=== PATIENT | male | born 1970 | race Caucasian/White ===

== ENCOUNTER 2018-05-31 16:19 | Emergency (ER) | payer BC ==
[2018-05-31] MEDS ORDERED: AMPICILLIN SODIUM/SULBACTAM NA 3 G in 0.9 % SODIUM CHLORIDE 100ML 100 ML IVPB ONE (16:31)
--- NOTE | 2018-05-31 16:31 | Emergency Department Record ---
History of Present Illness - General Chief Complaint: Animal Bite Stated Complaint: DOG BITES BOTH HANDS Time Seen by Provider: 05/31/18 16:26 Source: Patient Mode of Arrival: Ambulatory Limitations: No limitations - History of Present Illness Initial Comments: 47 yo male presents with dog bites. He was breaking up a fight with his dogs. He was bit on both hands. He is right handed. His tetanus is current. The dogs are up to date and healthy. MD Complaint: Animal bite -: Minutes(s) Left: Hand, Right: Hand Animal: Dog Description: Household pet, Immunizations UTD, Appeared well Mechanism: Bite Pain Description: Sharp Context: Animals fighting Associated Symptoms: Other - Related Data Home Medications Medication Instructions Recorded Confirmed Last Taken Emtricitabine/Tenofovir (Tdf) 1 tab PO ASDIR 05/31/18 05/31/18 05/31/18 [Truvada 200 mg-300 mg Tablet] Neomycin/Polymyxin B Sulf/Hc 1 drop EACH EAR ASDIR 05/31/18 05/31/18 Unknown [Cortisporin Otic] Previous Rx's Medication Instructions Recorded Amoxicillin/Potassium Clav 1 tab PO BID #14 tab 05/31/18 [Augmentin 875-125 Tablet] Hydrocodone/Acetaminophen [[place] 1 tab PO Q6H PRN #10 tab 05/31/18 5mg/325mg] Allergies Allergy/AdvReac Type Severity Reaction Status Date / Time No Known Drug Allergies Allergy Verified 05/31/18 16:23 Review of Systems Constitutional: Denies: Fever, Weakness Eyes: Denies: Eye discharge ENT: Denies: Congestion, Throat pain Respiratory: Denies: Cough Cardiovascular: Denies: Chest pain Endocrine: Denies: Fatigue Gastrointestinal: Denies: Abdominal pain, Diarrhea, Nausea, Vomiting Genitourinary: Denies: Dysuria, Frequency, Hematuria Musculoskeletal: Denies: Arthralgia, Back pain, Myalgia, Neck pain Skin: Denies: Bruising Neurological: Reports: Numbness, Tingling Psychiatric: Denies: Anxiety Hematological/Lymphatic: Denies: Blood Clots, Easy bleeding, Easy bruising Physical Exam - General General Appearance: Alert, Oriented x3, Cooperative, No acute distress Limitations: No limitations - Head Head exam: Atraumatic, Normal inspection - Eye Eye exam: Normal appearance. negative: Conjunctival injection - ENT ENT exam: Normal exam Ear exam: Normal external inspection Nasal Exam: Normal inspection Mouth exam: Normal external inspection - Neck Neck exam: Normal inspection - Respiratory Respiratory exam: Normal lung sounds bilaterally - Cardiovascular Cardiovascular Exam: Normal rhythm, Normal heart sounds Peripheral Pulses: 2+: Radial (R), Radial (L) - Extremities Extremities exam: negative: Normal inspection Image of Hand: 1 - laceration just distal to the extensor crease 2 - unable to feel light or sharp sensation 3 - abrasions/bite 4 - Extension is intact fully, distal and proximal flexion is intact 5 - abrasion - Neurological Neurological exam: Alert, Motor sensory deficit, Oriented X3 - Psychiatric Psychiatric exam: negative: Agitated, Anxious - Skin Skin exam: Abrasion Type of lesion: Laceration Course - Reevaluation(s) Reevaluation #1: The left hand was immediately cleaned on arrival with soap and water Unasyn was ordered He is NPO XR ordered 05/31/18 16:35 The patient has not sensation distal to the wound on the index (L) on the radial side to light and sharp digital block Lidocaine 1% plain. 4ml Examination with brief tourniquet No definite tendon or bony injury The wound was copiously irrigated with NS under pressure Dog hair was removed from the wound during the cleaning process. 05/31/18 17:00 05/31/18 17:02 The prelim XR was reviewed by me. No obvious FB or fracture. XR final read was negative. 05/31/18 17:11 One Call called at [facility]. 05/31/18 17:[address] Leon of Hand Surgery We discussed the injury, location, examination He recommends do not close wound, triple antibiotics, non stick dressing, bulky dressing and call in the morning to be seen 05/31/18 18:28 Disposition Disposition: Discharge Clinical Impression: Dog bite of hand, Finger laceration Disposition: Home, Self-Care Condition: (2) Stable Instructions: Animal Bite (ED) Additional Instructions: Call Dr Leon in the morning to be seen next available Fill and take the antibiotic as directed Leave the dressing on the hand Prescriptions: Amoxicillin/Potassium Clav [Augmentin 875-125 Tablet] 1 tab PO BID #14 tab Hydrocodone/Acetaminophen [[place] 5mg/325mg] 1 tab PO Q6H PRN #10 tab PRN Reason: Pain - General Referrals: ALEX LEON [MEDICAL DOCTOR] - Forms: Patient Portal Access Time of Disposition: 17:20 Quality - Quality Measures Quality Measures: N/A - Blood Pressure Screening Does Patient Have Any of the Following: No Blood Pressure Classification: Hypertensive Reading Systolic Measurement: 140 Diastolic Measurement: 76 Screening for High Blood Pressure: < Pre-Hypertensive BP, F/U Documented > [ [id number]] Pre-Hypertensive Follow-up Interventions: Referral to alternative/primary care provider.
[2018-05-31] MEDS ORDERED: HYDROCODONE/APAP 5/325MG TABLET PO ONE (17:58)
--- NOTE | 2018-06-02 07:55 | RADIOLOGY REPORT ---
EXAM: LEFT HAND HISTORY: INJURY. TECHNIQUE: Three views of the left hand were performed. FINDINGS: No evidence of fracture or dislocation. No lytic or blastic lesion. No radiopaque foreign body. IMPRESSION: NEGATIVE LEFT HAND EXAMINATION. JOB NUMBER: [id number] MTDD
== END 2018-05-31 18:03 | disposition home or self-care (01) ==
LOC: ER 16:19
DX: S61.213A Laceration without foreign body of left middle finger without damage to nail, initial encounter (principal); S60.414A Abrasion of right ring finger, initial encounter; S60.512A Abrasion of left hand, initial encounter; W54.0XXA Bitten by dog, initial encounter; Y92.009 Unspecified place in unspecified non-institutional (private) residence as the place of occurrence of the external cause
CPT/HCPCS: 64450 ×2; 99284 ×2; 96365; 73130; J0295